=== PATIENT | female | born 1945 | race Asian ===

== ENCOUNTER 2019-10-02 23:26 | Inpatient (IN) | payer MEDICARE, MEDICAID ==
[~2019-10-02] VITALS: Ht 154.9 cm; Wt 59.0 kg
[~2019-10-02 23:26] MED LIST: ALAVERT10 M1 ORAL; ATORVASTATIN CA20 MG ORAL; ECOTRIN81 MG ORAL; IBANDRONATE SO150 MG PO; JANUVIA50 MG ORAL; LORATADINE10 M2 PO; NORVASC2.5 MG ORAL; NORVASC5 MG ORAL; RANITIDINE HCL150 MG ORAL; UNOBMED
[2019-10-02] MEDS ORDERED: DEXILANT60 MG ORAL (23:39)
[2019-10-02] MEDS ORDERED: LOSARTAN POTAS100 MG ORAL (23:39)
[2019-10-02] MEDS ORDERED: VASCEPA1 GM PO (23:39)
[2019-10-02] MEDS ORDERED: METOPROLOL SUCC25 MG ORAL (23:39)
[2019-10-02] MEDS ORDERED: ANTACID300 M1 PO (23:39)
--- NOTE | 2019-10-02 23:41 | NUR ---
ED Nurse Note: pt. walked in to er with daughter from home. per daughter, pt. has been having SOB, sorethroat, fever and cough x 3 days now. pt ao4 nad. vss.
[2019-10-02 23:42] VITALS: BP 138/75
--- NOTE | 2019-10-02 23:55 | Emergency Room Report ---
History of Present Illness General Chief Complaint: Flu Like Symptoms Source: Patient, Family Member Present Illness HPI Patient presents with complaints of cough shortness of breath sore throat ongoing for the past 3 to 4 days Daughter reports that the patient has been Having more difficulty sleeping also has increased headache with cough denies any vomiting or diarrhea denies any abdominal pain patient however feels generally fatigued Denies any posterior neck pain denies any photophobia Allergies: Coded Allergies: No Known Allergies (Unverified , 04/18/13) Patient History Past Medical History: see triage record Reviewed Nursing Documentation: PMH: Agreed; PSxH: Agreed Nursing Documentation-PMH Hx Cardiac Problems: Yes - high cholesterol Hx Hypertension: Yes Hx Diabetes: Yes Hx Cancer: No Hx Gastrointestinal Problems: No Hx Neurological Problems: Yes Hx Cerebrovascular Accident: No Hx Transient Ischemic Attacks: No Hx Dementia: No Hx Alzheimer's Disease: No Hx Parkinson's Disease: No Hx Meningitis: No Hx Encephalitis: No Hx Seizures: No Hx Epilepsy: No Hx Multiple Sclerosis: No Hx Cerebral Palsy: No Hx Amyotrophic Lat Sclerosis: No Hx [place] Syndrome: No Hx Paralysis: No Hx Peripheral Neuropathy: No Hx Spinal Cord Injury: No Hx Head Trauma: No Hx Traumatic Brain Injury: No Hx Memory Loss: No Hx Concentration Difficulty: No Hx Speech Problem: No Hx Tremors: No Hx Vertigo: No Hx Dizziness: Yes Hx Syncope: No Hx Headaches: Yes Hx Aphasia: No Hx Dysphasia: No Hx Numbness: No Hx Weakness: No Hx Fatigue: No Hx Neurologic Surgery: No Review of Systems All Other Systems: negative except mentioned in HPI Physical Exam Vital Signs Date Time Temp Pulse Resp B/P (MAP) Pulse Ox O2 Delivery O2 Flow Rate FiO2 10/02/19 23:32 97.5 92 23 138/75 (96) 95 Room Air Sp02 EP Interpretation: reviewed, normal General Appearance: mild distress - Appears mildly tachypneic Head: normocephalic, atraumatic Eyes: bilateral eye PERRL, bilateral eye EOMI ENT: hearing grossly normal, normal pharynx, TMs + canals normal, uvula midline Neck: full range of motion, supple, no meningismus, no bony tend Respiratory: no respiratory distress, no retraction, no accessory muscle use, crackles - Fine crackles in both lower lobes Cardiovascular #1: normal peripheral pulses, regular rate, rhythm, no edema, no gallop, no JVD, no murmur Gastrointestinal: normal bowel sounds, non tender, soft, no mass, no organomegaly, non-distended, no guarding, no hernia, no pulsatile mass, no rebound Genitourinary: no CVA tenderness Musculoskeletal: normal inspection Neurologic: motor strength/tone normal, dba developer III-XII nml as tested, oriented x3 , sensory intact, responsive Psychiatric: mood/affect normal Skin: no rash Lymphatic: normal inspection, no adenopathy Medical Decision Making Diagnostic Impression: Primary Impression: Hyperglycemia Additional Impressions: Influenza-like symptoms Acidosis ER Course Patient is a fairly complex patient with multiple differential to consideration including but not limited to cardiac cardiopulmonary and vascular emergencies Patient's x-ray does not show any obvious acute process Blood work reveals elevated glucose count patient does show some signs of acidosis however No obvious DKA patient further hydrated Given the multiple complaints and the comorbidities is admitted for further care Labs Test 10/03/19 00:00 10/03/19 01:30 White Blood Count 12.2 K/UL (4.8-10.8) Red Blood Count 4.08 M/UL (4.20-5.40) Hemoglobin 13.2 G/DL (12.0-16.0) Hematocrit 37.7 % (37.0-47.0) Mean Corpuscular Volume 92 FL (80-99) Mean Corpuscular Hemoglobin 32.4 PG (27.0-31.0) Mean Corpuscular Hemoglobin Concent 35.0 G/DL (32.0-36.0) Red Cell Distribution Width 10.9 % (11.6-14.8) Platelet Count 220 K/UL (150-450) Mean Platelet Volume 5.8 FL (6.5-10.1) Neutrophils (%) (Auto) 70.3 % (45.0-75.0) Lymphocytes (%) (Auto) 18.9 % (20.0-45.0) Monocytes (%) (Auto) 7.3 % (1.0-10.0) Eosinophils (%) (Auto) 2.5 % (0.0-3.0) Basophils (%) (Auto) 1.0 % (0.0-2.0) Sodium Level 135 MMOL/L (136-145) Potassium Level 3.5 MMOL/L (3.5-5.1) Chloride Level 100 MMOL/L (98-107) Carbon Dioxide Level 26 MMOL/L (21-32) Anion Gap 9 mmol/L (5-15) Blood Urea Nitrogen 18 mg/dL (7-18) Creatinine 1.0 MG/DL (0.55-1.30) Estimat Glomerular Filtration Rate mL/min (>60) Glucose Level 340 MG/DL (74-106) Lactic Acid Level 2.30 mmol/L (0.4-2.0) 1.20 mmol/L (0.66-2.22) Calcium Level 9.0 MG/DL (8.5-10.1) Total Bilirubin 0.5 MG/DL (0.2-1.0) Aspartate Amino Transf (AST/SGOT) 18 U/L (15-37) Alanine Aminotransferase (ALT/SGPT) 28 U/L (12-78) Alkaline Phosphatase 80 U/L (46-116) Total Creatine Kinase 87 U/L (26-308) Creatine Kinase MB 0.7 NG/ML (0.0-3.6) Creatine Kinase MB Relative Index 0.8 Troponin I 0.000 ng/mL (0.000-0.056) Pro-B-Type Natriuretic Peptide 33 pg/mL (0-125) Total Protein 7.2 G/DL (6.4-8.2) Albumin 3.8 G/DL (3.4-5.0) Globulin 3.4 g/dL Albumin/Globulin Ratio 1.1 (1.0-2.7) Lipase 279 U/L (73-393) Rhythm Strip Diag. Results EP Interpretation: yes Rate: 82 Rhythm: NSR, no PVC's, no ectopy Chest X-Ray Diagnostic Results Chest X-Ray Diagnostic Results : Chest X-Ray Ordered: Yes # of Views/Limited/Complete: 1 View Indication: Chest Pain EP Interpretation: Yes Interpretation: no consolidation, no effusion, no pneumothorax Impression: No acute disease Electronically Signed by: Danita Hernandez DO Last Vital Signs Date Time Temp Pulse Resp B/P (MAP) Pulse Ox O2 Delivery O2 Flow Rate FiO2 10/02/19 23:42 97.5 92 23 138/75 95 Room Air Status: improved Disposition: ADMITTED INPATIENT Condition: Serious Danita Hernandez DO Oct 02, 2019 23:55
[2019-10-03] VITALS (7 sets, daily range): BP systolic 104–128; BP diastolic 50–72
--- NOTE | 2019-10-03 | NUR ---
ED Nurse Note: IV ACCESS ESTABLISHED. BLOOD AND CULTURES COLLECTED; SENT DOWN TO LAB. UNABLE TO COLLECT URINE AT THIS TIME; PER PT, WILL PROVIDE URINE WHEN ABLE.
[2019-10-03 00:18] LABS: EOSINOPHILS % (AUTO) 2.5 % (0.0-3.0); HEMATOCRIT 37.7 % (37.0-47.0); HEMOGLOBIN 13.2 G/DL (12.0-16.0); LYMPHOCYTES % (AUTO) 18.9 % (20.0-45.0); MEAN CORPUSCULAR VOLUME 92 FL (80-99); MONOCYTES % (AUTO) 7.3 % (1.0-10.0); NEUTROPHILS % (AUTO) 70.3 % (45.0-75.0); PLATELET COUNT 220 K/UL (150-450); RED BLOOD COUNT 4.08 M/UL (4.20-5.40); RED CELL DISTRIBUTION WIDTH 10.9 % (11.6-14.8); WHITE BLOOD COUNT 12.2 K/UL (4.8-10.8)
[2019-10-03 00:30] LABS: ANION GAP 9 mmol/L (5-15); BLOOD UREA NITROGEN 18 mg/dL (7-18); CARBON DIOXIDE 26 MMOL/L (21-32); CHLORIDE 100 MMOL/L (98-107); POTASSIUM 3.5 MMOL/L (3.5-5.1); SODIUM 135 MMOL/L (136-145)
[2019-10-03 00:44] LABS: ALANINE AMINOTRANSFERASE 28 U/L (12-78); ALBUMIN 3.8 G/DL (3.4-5.0); ALBUMIN/GLOBULIN RATIO 1.1 (1.0-2.7); ALKALINE PHOSPHATASE 80 U/L (46-116); ASPARTATE AMINO TRANSFERASE 18 U/L (15-37); BILIRUBIN,TOTAL 0.5 MG/DL (0.2-1.0); CKMB 0.7 NG/ML (0.0-3.6); CREATINE KINASE 87 U/L (26-308)
[2019-10-03] MEDS ORDERED: Promethazine/Codeine 5ml UD ORAL ONE (01:15)
--- NOTE | 2019-10-03 01:43 | NUR ---
ED Nurse Note: FLU SWAB AND LACTIC REFLEX COLLECTED; SENT DOWN TO LAB.
--- NOTE | 2019-10-03 02:06 | NUR ---
TRANSFER TO FLOOR: Patient transferred to MED SURG 412-2 as ordered, per ALFONSO BONILLA. Report given to AGNIESZKA SHORE. PATIENT IN STABLE CONDITION. PATIENT TRANSFERED TO UNIT WITH ALL BELONGINGS AND ADMISSION PACKET. PT ACCOMPANIED BY [facility] AND FAMILY MEMBER.
--- NOTE | 2019-10-03 02:28 | NUR ---
NURSE NOTES: Received patient from ED via gurney, patient is awake, alert, oriented x4, Czech speaking only, daughter at bedside. IV site is clean dry and intact, call light is within reach, bed is lowered locked, alarm is on, belongings list is verified, signed for, oriented to the room. Will continue to monitor for comfort and safety, MD called for admit orders.
[2019-10-03 04:03] LABS: APPEARANCE,URINE CLEAR; BILIRUBIN, URINE NEGATIVE (NEGATIVE); COLOR,URINE PALE YELLOW; GLUCOSE, URINE (UA) NEGATIVE (NEGATIVE); KETONES,URINE NEGATIVE (NEGATIVE); LEUKOCYTE ESTERASE ,URINE 1+ (NEGATIVE); NITRITE,URINE NEGATIVE (NEGATIVE); PH,URINE 7 (4.5-8.0); PROTEIN,URINE NEGATIVE (NEGATIVE); UROBILINOGEN,URINE NORMAL MG/DL (0.0-1.0)
--- NOTE | 2019-10-03 05:20 | NUR ---
RN called and left a voice message for MD to call back with admit orders, CN was made aware.
[2019-10-03] MEDS ORDERED: Promethazine/Codeine 5ml UD ORAL PRN (07:15)
--- NOTE | 2019-10-03 07:33 | NUR ---
HAND-OFF: Report given to Laura SHORE.
--- NOTE | 2019-10-03 07:35 | NUR ---
NURSE NOTES: received report from MONE Cuellar. patient in bed. sleeping. no respiratory distress noted. no facial grimacing noted.IV on LH 18. intact. bed in the lowest position and locked. alarm on . call light within reach. will continue to provide plan of care.
[2019-10-03] MEDS: Metoprolol Succinate XL 25mg tab ORAL SCH (08:52)
[2019-10-03] MEDS: sitaGLIPtin 50mg tab ORAL SCH (08:52)
[2019-10-03] MEDS: Losartan 50mg tab ORAL SCH (08:52)
[2019-10-03] MEDS: NovoLOG Insulin Flexpen SUBQ SCH ×3 (11:30→20:55)
--- NOTE | 2019-10-03 11:58 | NUR ---
MD NOTIFICATION MESSAGE LEFT FOR MD REGARDING INPATIENT CRITERIA
[2019-10-03] MEDS: Heparin 5000 units/ml inj SUBQ SCH ×2 (13:28→22:19)
--- NOTE | 2019-10-03 13:30 | Diagnostic Imaging Report ---
Indication: Shortness of breath and cough Technique: One view of the chest Comparison: 02/16/2015 Findings: The patient is rotated to the left. The lungs and pleural spaces are clear. The heart size is upper limits of normal. The aorta is calcified. Findings are unchanged Impression: No acute process
--- NOTE | 2019-10-03 13:43 | Cardiology Report ---
APPROVED REPORT EKG Measurement Heart [id number] Sinus rhythm with 1st degree AV block Anterior infarct, age undetermined Abnormal ECG
--- NOTE | 2019-10-03 14:16 | Consultation ---
History of Present Illness General Chief Complaint: Flu Like Symptoms Present Illness Allergies: Coded Allergies: No Known Allergies (Unverified , 04/18/13) Medication History Scheduled Amlodipine Besylate (Norvasc), 5 MG ORAL DAILY, (Reported) Atorvastatin Calcium* (Atorvastatin Calcium*), 20 MG ORAL BEDTIME, (Reported) Dexlansoprazole (Dexilant), 60 MG ORAL DAILY, (Reported) Ipratropium/Albuterol Sulfate (DuoNeb 0.5-3(2.5)mg/3ml), 3 ML HHN EVERY 8 HOURS Losartan Potassium (Losartan Potassium), 50 MG ORAL DAILY, (Reported) Methylprednisolone (Methylprednisolone*), 4 MG ORAL DIRECTED Metoprolol Succinate* (Metoprolol Succinate*), 25 MG ORAL DAILY, (Reported) Nateglinide* (Starlix*), 60 MG ORAL TIAC Sitagliptin (Januvia), 50 MG ORAL DAILY, (Reported) Miscellaneous Medications Calcium Carbonate (Antacid), 500 MG PO, (Reported) Icosapent Ethyl (Vascepa), 1 GM PO, (Reported) Discontinued Medications Aspirin (Ecotrin), 81 MG ORAL DAILY Discontinued Reason: Therapy completed Ibandronate Sodium (Ibandronate Sodium), 150 MG PO once a month, (Reported) Discontinued Reason: Therapy completed Loratadine (Alavert), 10 MG ORAL DAILY, (Reported) Discontinued Reason: Therapy completed Loratadine (Loratadine), 10 MG PO, (Reported) Discontinued Reason: Therapy completed Ranitidine Hcl* (Zantac*), 150 MG ORAL BEDTIME Discontinued Reason: Therapy completed Patient History Healthcare decision maker Resuscitation status Full Code Advanced Directive on File No Physical Exam Last 24 Hour Vital Signs Date Time Temp Pulse Resp B/P (MAP) Pulse Ox O2 Delivery O2 Flow Rate FiO2 10/03/19 12:00 99.0 82 19 124/72 (89) 97 10/03/19 09:00 Room Air 10/03/19 08:52 87 120/71 10/03/19 08:52 120/71 10/03/19 08:52 87 120/71 10/03/19 08:00 99.2 87 18 120/71 (87) 99 10/03/19 04:00 98.1 73 20 110/68 (82) 94 10/03/19 02:53 97.7 74 20 125/62 (83) 97 10/03/19 02:51 Room Air 10/03/19 02:13 97.5 85 22 128/71 96 Room Air 10/03/19 01:43 97.5 85 22 128/71 96 Room Air 10/02/19 23:42 97.5 92 23 138/75 95 Room Air 10/02/19 23:42 92 23 Room Air 10/02/19 23:32 97.5 92 23 138/75 (96) 95 Room Air Laboratory Tests Test 10/03/19 00:00 10/03/19 01:30 10/03/19 03:50 White Blood Count 12.2 K/UL (4.8-10.8) H Red Blood Count 4.08 M/UL (4.20-5.40) L Hemoglobin 13.2 G/DL (12.0-16.0) Hematocrit 37.7 % (37.0-47.0) Mean Corpuscular Volume 92 FL (80-99) Mean Corpuscular Hemoglobin 32.4 PG (27.0-31.0) H Mean Corpuscular Hemoglobin Concent 35.0 G/DL (32.0-36.0) Red Cell Distribution Width 10.9 % (11.6-14.8) L Platelet Count 220 K/UL (150-450) Mean Platelet Volume 5.8 FL (6.5-10.1) L Neutrophils (%) (Auto) 70.3 % (45.0-75.0) Lymphocytes (%) (Auto) 18.9 % (20.0-45.0) L Monocytes (%) (Auto) 7.3 % (1.0-10.0) Eosinophils (%) (Auto) 2.5 % (0.0-3.0) Basophils (%) (Auto) 1.0 % (0.0-2.0) Sodium Level 135 MMOL/L (136-145) L Potassium Level 3.5 MMOL/L (3.5-5.1) Chloride Level 100 MMOL/L (98-107) Carbon Dioxide Level 26 MMOL/L (21-32) Anion Gap 9 mmol/L (5-15) Blood Urea Nitrogen 18 mg/dL (7-18) Creatinine 1.0 MG/DL (0.55-1.30) Estimat Glomerular Filtration Rate mL/min (>60) Glucose Level 340 MG/DL (74-106) H Lactic Acid Level 2.30 mmol/L (0.4-2.0) H 1.20 mmol/L (0.66-2.22) Calcium Level 9.0 MG/DL (8.5-10.1) Total Bilirubin 0.5 MG/DL (0.2-1.0) Aspartate Amino Transf (AST/SGOT) 18 U/L (15-37) Alanine Aminotransferase (ALT/SGPT) 28 U/L (12-78) Alkaline Phosphatase 80 U/L (46-116) Total Creatine Kinase 87 U/L (26-308) Creatine Kinase MB 0.7 NG/ML (0.0-3.6) Creatine Kinase MB Relative Index 0.8 Troponin I 0.000 ng/mL (0.000-0.056) Pro-B-Type Natriuretic Peptide 33 pg/mL (0-125) Total Protein 7.2 G/DL (6.4-8.2) Albumin 3.8 G/DL (3.4-5.0) Globulin 3.4 g/dL Albumin/Globulin Ratio 1.1 (1.0-2.7) Lipase 279 U/L (73-393) Urine Color Pale yellow Urine Appearance Clear Urine pH 7 (4.5-8.0) Urine Specific [place] 1.005 (1.005-1.035) Urine Protein Negative (NEGATIVE) Urine Glucose (UA) Negative (NEGATIVE) Urine Ketones Negative (NEGATIVE) Urine Blood Negative (NEGATIVE) Urine Nitrite Negative (NEGATIVE) Urine Bilirubin Negative (NEGATIVE) Urine Urobilinogen Normal MG/DL (0.0-1.0) Urine Leukocyte Esterase 1+ (NEGATIVE) H Urine RBC 0-2 /HPF (0 - 2) Urine WBC 0-2 /HPF (0 - 2) Urine Squamous Epithelial Cells Occasional /LPF Urine Bacteria Occasional /HPF (NONE) Microbiology Date/Time Source Procedure Growth Status 10/03/19 00:00 Nasal Nares - Final Complete 10/03/19 00:00 Nasal Nares - Final Complete Height (Feet): 5 Height (Inches): 1.00 Weight (Pounds): 130 Medications Current Medications Medications (Trade) Dose Ordered Sig/Angélica Route PRN Reason Start Time Stop Time Status Last Admin Dose Admin Acetaminophen (Tylenol) 650 mg Q4H PRN ORAL Mild Pain/Temp > 100.5 10/03/19 07:15 11/02/19 07:14 10/03/19 13:26 Amlodipine Besylate (Norvasc) 5 mg DAILY ORAL 10/03/19 09:00 11/02/19 08:59 10/03/19 08:52 Atorvastatin Calcium (Lipitor) 20 mg BEDTIME ORAL 10/03/19 21:00 11/02/19 20:59 Dextrose (Dextrose 50%) 25 ml Q30M PRN IV Hypoglycemia 10/03/19 07:15 11/02/19 07:14 Dextrose (Dextrose 50%) 50 ml Q30M PRN IV Hypoglycemia 10/03/19 07:15 11/02/19 07:14 Heparin Sodium (Porcine) (Heparin 5000 units/ml) 5,000 units EVERY 8 HOURS SUBQ 10/03/19 14:00 11/02/19 13:59 10/03/19 13:28 Insulin Aspart (NovoLOG) BEFORE MEALS AND HS SUBQ 10/03/19 11:30 11/02/19 11:29 Losartan Potassium (Cozaar) 50 mg DAILY ORAL 10/03/19 09:00 11/02/19 08:59 10/03/19 08:52 Metoprolol Succinate (Toprol XL) 25 mg DAILY ORAL 10/03/19 09:00 11/02/19 08:59 10/03/19 08:52 Ondansetron HCl (Zofran) 4 mg Q4H PRN IVP Nausea & Vomiting 10/03/19 07:15 11/02/19 07:14 Promethazine HCl/ Codeine (Phenergan with Codeine) 5 ml Q6H PRN ORAL For Cough 10/03/19 07:15 11/02/19 07:14 10/03/19 08:57 Sitagliptin Phosphate (Januvia) 50 mg DAILY ORAL 10/03/19 09:00 11/02/19 08:59 10/03/19 08:52 Sodium Chloride 1,000 ml @ 75 mls/hr [id number] IV 10/03/19 07:15 11/02/19 07:14 10/03/19 08:52 Assessment/Plan Problem List: (1) Acute exacerbation of chronic obstructive pulmonary disease (COPD) ICD Codes: J44.1 - Chronic obstructive pulmonary disease with (acute) exacerbation SNOMED: 081750839 (2) Acute purulent bronchitis ICD Codes: J20.8 - Acute bronchitis due to other specified organisms SNOMED: 088275731 (3) COPD (chronic obstructive pulmonary disease) ICD Codes: J44.9 - Chronic obstructive pulmonary disease, unspecified SNOMED: 23413389 (4) Empyema ICD Codes: J86.9 - Pyothorax without fistula SNOMED: 787847794 (5) Diabetes mellitus ICD Codes: E11.9 - Type 2 diabetes mellitus without complications SNOMED: 21872176 Assessment/Plan: respiratory treatment check sputum short course of abx sliding scale continue Januvia antitussives Britney Jensen MD Oct 03, 2019 14:16
[2019-10-03] MEDS: Promethazine/Codeine 5ml UD ORAL PRN ×2 (15:11→20:42)
[2019-10-03] MEDS: Solu-MEDROL 125mg Inj IV SCH ×2 (15:11→18:33)
--- NOTE | 2019-10-03 16:02 | NUR ---
CASE MANAGEMENT: INITIAL REVIEW 73YR OLD FEMALE FROM HOME CC: FLU LIKE SYMPTOMS SI: ACIDOSIS/ HYPERGLYCEMIA 97.6 92 23 138/75 95% ON RA NA+ 135 BG 340 WBC 12.2 LACTIC ACID 2.30 IS: IVF NS BOLUS X1 PROMETHAZINE PO X1 \: 4E MED SURG CASE MANAGEMENT: INITIAL REVIEW 10/03/19 SI: ACUTE COPD EXACERBATION . ACUTE PURULENT BRONCHITIS . DM 97.6 92 23 138/75 95% ON RA NA+ 135 BG 340 WBC 12.2 LACTIC ACID 2.30 IS: IV SOLU-MEDROL Q6HR HEPARIN SQ Q8HR NORVASC PO QD COZAAR PO QD TOPROL XL PO QD JUNUVIA PO QD \: 4E MED SURG PLAN: BREATHING TX PER RT ABX
[2019-10-03] MEDS: cefTRIAXone 1 GM in D5W 55 ML IVPB SCH (16:44)
--- NOTE | 2019-10-03 18:41 | History & Physical ---
History and Physical History & Physicial Dictated for Int Med-Dr Padgett no. [id number] Caleb Muller MD Oct 03, 2019 18:41
--- NOTE | 2019-10-03 19:20 | NUR ---
NURSE NOTES: Received report from MONE Sanchez. Patient a/a/o x 4, breathing unlabored on room air without distress. Nonproductive cough noted during the rounding. No complaint of pain at this time. IV noted on left hand intact, dry, and patent, currently saline locked. Bed placed at the lowest with alarm, brake, and siderails up for safety. Call light placed within reach. Will continue to monitor and provide care as ordered.
--- NOTE | 2019-10-03 19:22 | NUR ---
HAND-OFF: Report given to MONE Pack .
[2019-10-03] MEDS: Theophylline ER 100mg ORAL SCH (20:42)
[2019-10-03] MEDS: Atorvastatin 20mg tab ORAL SCH (20:42)
--- NOTE | 2019-10-03 21:31 | History and Physical Report ---
DATE OF ADMISSION: 10/03/2019 CHIEF COMPLAINT: The patient is a 73-year-old Frisian-speaking female who presents with chief complaint of cough and shortness of breath. HISTORY OF PRESENT ILLNESS: It began three days prior to admission. The patient began to have sore throat. The patient then began to have cough, which is nonproductive. The patient then began to have shortness of breath. The patient presented to [place] emergency room. The patient was admitted with cough and shortness of breath to rule out pneumonia. REVIEW OF SYSTEMS: CONSTITUTIONAL: The patient denies weight loss or weight gain. The patient denies fevers or chills. HEENT: The patient denies ear or throat pain. The patient denies headache. CARDIOVASCULAR: The patient denies palpitations or chest pain. CHEST: The patient complains of shortness of breath and cough as above. The patient denies wheezes. ABDOMEN: The patient denies nausea, vomiting, diarrhea, or constipation. GENITOURINARY: The patient denies dysuria or increased frequency of urination. NEUROMUSCULAR: The patient complains of generalized weakness. The patient denies weakness or seizures. PAST MEDICAL HISTORY: Significant for: 1. Type 2 diabetes. 2. Hypertension. 3. Hypercholesterolemia. PAST SURGICAL HISTORY: The patient denies. CURRENT MEDICATIONS: 1. Amlodipine 5 mg p.o. daily. 2. Atorvastatin 20 mg p.o. at bedtime. 3. Dexilant 60 mg p.o. daily. 4. Vascepa 1 g p.o. 5. Losartan 50 mg p.o. daily. 6. Metoprolol 25 mg p.o. daily. 7. Januvia 50 mg p.o. daily. ALLERGIES: No known drug allergies. SOCIAL HISTORY: The patient is single. The patient denies tobacco or alcohol use. PHYSICAL EXAMINATION: VITAL SIGNS: Temperature 97.5, respirations 23, pulse 93, blood pressure 138/75, pulse oximetry 95% on room air. GENERAL: The patient is a well-developed and well-nourished female, in no apparent distress. HEENT: Eyes, pupils are equal and responsive to light and accommodation. Extraocular movements are intact. NECK: Supple without lymphadenopathy. CHEST: Lungs are clear to auscultation bilaterally without wheezes or rales. CARDIOVASCULAR: Regular rate. S1, S2 normal without murmurs, rubs, or gallops. ABDOMEN: Soft, nontender, nondistended. Positive bowel sounds. No evidence of hepatosplenomegaly. Currently, no rebound or guarding noted. EXTREMITIES: Negative for clubbing, cyanosis, or edema. RECTAL/GENITAL: Refused. NEUROLOGIC: Cranial nerves II through XII grossly intact without focal deficits. Motor strength is 5/5 bilaterally. Deep tendon reflexes are 2+ plantar. LABORATORY STUDIES: WBC , hemoglobin 13.2, hematocrit 37.7, platelets 220,000. Sodium 135, potassium 3.5, chloride 100, CO2 26, BUN 18, creatinine 1.0, glucose 340. Lactic acid elevated at 2.30. Troponin 0.0. Chest x-ray was reported as no acute disease. ASSESSMENT: This is a 73-year-old female. 1. Hyperglycemia. 2. Ketoacidosis. 3. Shortness of breath. 4. Upper respiratory tract infection. 5. Diabetes type 2. 6. Hypertension. 7. Hypercholesterolemia. TREATMENT: 1. Hyperglycemia/diabetes type 2. A NovoLog sliding scale has been instituted. Accu-Cheks will be performed before meals and at bedtime. An Endocrinology consultation has been obtained with Dr. Pitts. 2. Shortness of breath. A Pulmonary consultation has been obtained with Dr. Britney Jensen. The patient may have upper respiratory tract infection versus bronchitis. We will follow recommendations of Pulmonary. The patient has been started empirically on intravenous Solu-Medrol and ceftriaxone. The patient is also on the . 3. Diabetes type 2. Continue Januvia and NovoLog sliding scale. 4. Hypertension. Continue amlodipine and metoprolol as above. Continue losartan as above. 5. Hypercholesterolemia. Continue atorvastatin as above. Caleb Muller M.D. DR: ANJUM JOB#: [id number] CC:
[2019-10-04] VITALS: BP 108/62
[2019-10-04] MEDS: Solu-MEDROL 125mg Inj IV SCH ×4 (00:33→17:06)
[2019-10-04] MEDS: Promethazine/Codeine 5ml UD ORAL PRN ×4 (02:10→20:09)
--- NOTE | 2019-10-04 02:30 | NUR ---
NURSE NOTES: collected sputum sample and sent it down to the lab.
[2019-10-04 04:00] VITALS: BP 103/57
[2019-10-04] MEDS: Heparin 5000 units/ml inj SUBQ SCH ×3 (05:42→22:16)
[2019-10-04] MEDS: NovoLOG Insulin Flexpen SUBQ SCH ×4 (06:18→20:48)
--- NOTE | 2019-10-04 07:30 | NUR ---
HAND-OFF: Report given to MONE Jain.
--- NOTE | 2019-10-04 07:31 | NUR ---
NURSE NOTES: Received pt in bed, AAO x 4. Latvian speaking. RA. No c/o of distress/pain. IV on L hand 18g intact and patent, with saline lock. Side rails x 2. Bed in the lowest and locked. Call light within reach. Will continue to monitor
[2019-10-04 07:33] LABS: BASOPHILS % (AUTO) 0.2 % (0.0-2.0); HEMATOCRIT 38.4 % (37.0-47.0); HEMOGLOBIN 13.8 G/DL (12.0-16.0); LYMPHOCYTES % (AUTO) 14.5 % (20.0-45.0); MEAN CORPUSCULAR VOLUME 92 FL (80-99); MONOCYTES % (AUTO) 0.9 % (1.0-10.0); NEUTROPHILS % (AUTO) 84.4 % (45.0-75.0); PLATELET COUNT 252 K/UL (150-450); RED BLOOD COUNT 4.18 M/UL (4.20-5.40); RED CELL DISTRIBUTION WIDTH 10.5 % (11.6-14.8)
[2019-10-04 07:55] LABS: ANION GAP 11 mmol/L (5-15); BLOOD UREA NITROGEN 19 mg/dL (7-18); CALCIUM 8.8 MG/DL (8.5-10.1); CARBON DIOXIDE 26 MMOL/L (21-32); CHLORIDE 100 MMOL/L (98-107); CREATININE 0.9 MG/DL (0.55-1.30); PHOSPHORUS 3.6 MG/DL (2.5-4.9); POTASSIUM 3.8 MMOL/L (3.5-5.1); SODIUM 137 MMOL/L (136-145)
[2019-10-04 08:00] VITALS: BP 112/59
[2019-10-04] MEDS: Metoprolol Succinate XL 25mg tab ORAL SCH (08:57)
[2019-10-04] MEDS: sitaGLIPtin 50mg tab ORAL SCH (08:59)
[2019-10-04] MEDS: Theophylline ER 100mg ORAL SCH ×2 (08:59→20:42)
[2019-10-04] MEDS: Losartan 50mg tab ORAL SCH (09:00)
[2019-10-04 12:00] VITALS: BP 118/63
--- NOTE | 2019-10-04 15:04 | Internal Med Progress Note ---
Subjective Date of Service: Oct 04, 2019 Physician Name Caleb Muller Attending Physician Stan Padgett MD Current Medications Medications (Trade) Dose Ordered Sig/Angélica Route PRN Reason Start Time Stop Time Status Last Admin Dose Admin Acetaminophen (Tylenol) 650 mg Q4H PRN ORAL Mild Pain/Temp > 100.5 10/03/19 07:15 11/02/19 07:14 10/03/19 13:26 Amlodipine Besylate (Norvasc) 5 mg DAILY ORAL 10/03/19 09:00 11/02/19 08:59 10/03/19 08:52 Atorvastatin Calcium (Lipitor) 20 mg BEDTIME ORAL 10/03/19 21:00 11/02/19 20:59 10/03/19 20:42 Ceftriaxone Sodium 1 gm/ Dextrose 55 ml @ 110 mls/hr Q24H IVPB 10/03/19 17:00 10/10/19 16:59 10/03/19 16:44 Dextrose (Dextrose 50%) 25 ml Q30M PRN IV Hypoglycemia 10/03/19 07:15 11/02/19 07:14 Dextrose (Dextrose 50%) 50 ml Q30M PRN IV Hypoglycemia 10/03/19 07:15 11/02/19 07:14 Heparin Sodium (Porcine) (Heparin 5000 units/ml) 5,000 units EVERY 8 HOURS SUBQ 10/03/19 14:00 11/02/19 13:59 10/04/19 05:42 Insulin Aspart (NovoLOG) BEFORE MEALS AND HS SUBQ 10/03/19 11:30 11/02/19 11:29 10/04/19 11:35 Losartan Potassium (Cozaar) 50 mg DAILY ORAL 10/03/19 09:00 11/02/19 08:59 10/04/19 09:00 Methylprednisolone Sodium Succinate (Solu-MEDROL) 60 mg EVERY 6 HOURS IV 10/03/19 14:13 11/02/19 14:12 10/04/19 11:34 Metoprolol Succinate (Toprol XL) 25 mg DAILY ORAL 10/03/19 09:00 11/02/19 08:59 10/03/19 08:52 Ondansetron HCl (Zofran) 4 mg Q4H PRN IVP Nausea & Vomiting 10/03/19 07:15 11/02/19 07:14 Promethazine HCl/ Codeine (Phenergan with Codeine) 5 ml Q4H PRN ORAL For Cough 10/03/19 14:13 11/02/19 14:12 10/04/19 14:30 Sitagliptin Phosphate (Januvia) 50 mg DAILY ORAL 10/03/19 09:00 11/02/19 08:59 10/04/19 08:59 Theophylline (Zeeshan-Dur) 100 mg EVERY 12 HOURS ORAL 10/03/19 21:00 11/02/19 20:59 10/04/19 08:59 Allergies: Coded Allergies: No Known Allergies (Unverified , 04/18/13) ROS Limited/Unobtainable: No Constitutional: Reports: no symptoms HEENT: Reports: no symptoms Cardiovascular: Reports: no symptoms Respiratory: Reports: shortness of breath Gastrointestinal/Abdominal: Reports: no symptoms Genitourinary: Reports: no symptoms Neurologic/Psychiatric: Reports: no symptoms Subjective 73 YO F admitted with shortness of breath. Now uncontrolled diabetes with hyperglycemia. Cover For Int Med-DR Padgett Objective Last Vital Signs Date Time Temp Pulse Resp B/P (MAP) Pulse Ox O2 Delivery O2 Flow Rate FiO2 10/04/19 12:00 98.5 87 20 118/63 (81) 96 10/04/19 11:24 Room Air 21 Laboratory Tests Test 10/04/19 05:40 White Blood Count 13.0 K/UL (4.8-10.8) H Red Blood Count 4.18 M/UL (4.20-5.40) L Hemoglobin 13.8 G/DL (12.0-16.0) Hematocrit 38.4 % (37.0-47.0) Mean Corpuscular Volume 92 FL (80-99) Mean Corpuscular Hemoglobin 32.9 PG (27.0-31.0) H Mean Corpuscular Hemoglobin Concent 35.8 G/DL (32.0-36.0) Red Cell Distribution Width 10.5 % (11.6-14.8) L Platelet Count 252 K/UL (150-450) Mean Platelet Volume 5.7 FL (6.5-10.1) L Neutrophils (%) (Auto) 84.4 % (45.0-75.0) H Lymphocytes (%) (Auto) 14.5 % (20.0-45.0) L Monocytes (%) (Auto) 0.9 % (1.0-10.0) L Eosinophils (%) (Auto) 0.0 % (0.0-3.0) Basophils (%) (Auto) 0.2 % (0.0-2.0) Sodium Level 137 MMOL/L (136-145) Potassium Level 3.8 MMOL/L (3.5-5.1) Chloride Level 100 MMOL/L (98-107) Carbon Dioxide Level 26 MMOL/L (21-32) Anion Gap 11 mmol/L (5-15) Blood Urea Nitrogen 19 mg/dL (7-18) H Creatinine 0.9 MG/DL (0.55-1.30) Estimat Glomerular Filtration Rate mL/min (>60) Glucose Level 210 MG/DL (74-106) #H Calcium Level 8.8 MG/DL (8.5-10.1) Phosphorus Level 3.6 MG/DL (2.5-4.9) Magnesium Level 2.0 MG/DL (1.8-2.4) Microbiology Date/Time Source Procedure Growth Status 10/03/19 00:00 Blood Blood Culture - Preliminary NO GROWTH AFTER 24 HOURS Resulted 10/02/19 23:45 Blood Blood Culture - Preliminary NO GROWTH AFTER 24 HOURS Resulted 10/03/19 00:00 Nasal Nares - Final Complete 10/03/19 00:00 Nasal Nares - Final Complete Intake and Output 10/03/19 10/04/19 19:00 07:00 Intake Total 610 ml Balance 610 ml Intake Oral 500 ml IV Total 110 ml # Voids 3 Objective PHYSICAL EXAMINATION: GENERAL: The patient is a well-developed and well-nourished female, in no apparent distress. HEENT: Eyes, pupils are equal and responsive to light and accommodation. Extraocular movements are intact. NECK: Supple without lymphadenopathy. CHEST: Lungs are clear to auscultation bilaterally without wheezes or rales. CARDIOVASCULAR: Regular rate. S1, S2 normal without murmurs, rubs, or gallops. ABDOMEN: Soft, nontender, nondistended. Positive bowel sounds. No evidence of hepatosplenomegaly. Currently, no rebound or guarding noted. EXTREMITIES: Negative for clubbing, cyanosis, or edema. RECTAL/GENITAL: Refused. NEUROLOGIC: Cranial nerves II through XII grossly intact without focal deficits. Motor strength is 5/5 bilaterally. Deep tendon reflexes are 2+ plantar. Assessment/Plan Assessment/Plan ASSESSMENT: This is a 73-year-old female. 1. Hyperglycemia. 2. Ketoacidosis. 3. Shortness of breath. 4. Upper respiratory tract infection. 5. Diabetes type 2. 6. Hypertension. 7. Hypercholesterolemia. TREATMENT: 1. Hyperglycemia/diabetes type 2. A NovoLog sliding scale has been instituted. Accu-Cheks will be performed before meals and at bedtime. An Endocrinology consultation has been obtained with Dr. Pitts. 2. Shortness of breath. A Pulmonary consultation has been obtained with Dr. Britney Jensen. The patient may have upper respiratory tract infection versus bronchitis. We will follow recommendations of Pulmonary. The patient has been started empirically on intravenous Solu-Medrol and ceftriaxone. The patient is also on theodur 3. Diabetes type 2. Continue Januvia and NovoLog sliding scale. 4. Hypertension. Continue amlodipine and metoprolol as above. Continue losartan as above. 5. Hypercholesterolemia. Continue atorvastatin as above. Caleb Muller MD Oct 04, 2019 15:04
[2019-10-04 16:00] VITALS: BP 122/68
[2019-10-04] MEDS: cefTRIAXone 1 GM in D5W 55 ML IVPB SCH (17:07)
--- NOTE | 2019-10-04 18:56 | NUR ---
HAND-OFF: Report given to MONE Pack.
--- NOTE | 2019-10-04 19:00 | NUR ---
NURSE NOTES: Received report from MONE Jain. Patient a/a/o x4, breathing unlabored on room air. No complain of pain at this time. IV noted intact, dry, clean, and patent on left hand, saline locked. Bed placed at the lowest with alarm, brake, and siderails up for safety. Linen completely changed. Call light placed within reach. Family member acknowledged at the bedside. Will continue to monitor and provide care as ordered.
[2019-10-04 20:00] VITALS: BP 117/60
[2019-10-04] MEDS: Atorvastatin 20mg tab ORAL SCH (20:42)
--- NOTE | 2019-10-04 21:12 | Pulmonology Progress Note ---
Assessment/Plan Problems: (1) Acute exacerbation of chronic obstructive pulmonary disease (COPD) (2) Acute purulent bronchitis (3) COPD (chronic obstructive pulmonary disease) (4) Empyema (5) Diabetes mellitus Assessment/Plan respiratory treatment check sputum short course of abx sliding scale continue Januvia antitussives Subjective ROS Limited/Unobtainable: No Interval Events: still coughing Allergies: Coded Allergies: No Known Allergies (Unverified , 04/18/13) Objective Last 24 Hour Vital Signs Date Time Temp Pulse Resp B/P (MAP) Pulse Ox O2 Delivery O2 Flow Rate FiO2 10/04/19 20:26 82 18 99 Room Air 21 10/04/19 20:25 80 18 97 Room Air 21 10/04/19 16:00 98.7 83 19 122/68 (86) 97 10/04/19 15:50 72 16 96 Room Air 21 10/04/19 15:50 73 18 98 Room Air 21 10/04/19 12:00 98.5 87 20 118/63 (81) 96 10/04/19 11:24 76 18 98 Room Air 21 10/04/19 11:20 74 16 97 Room Air 21 10/04/19 09:00 Room Air 10/04/19 09:00 112/59 10/04/19 08:57 82 112/59 10/04/19 08:56 82 112/59 10/04/19 08:12 82 18 98 Room Air 21 10/04/19 08:05 80 16 97 Room Air 21 10/04/19 08:00 98.2 85 19 112/59 (76) 95 10/04/19 04:00 97.0 79 18 103/57 (72) 94 10/04/19 03:19 77 18 99 Room Air 21 10/04/19 03:19 70 16 97 Room Air 21 10/04/19 00:00 97.0 75 17 108/62 (77) 96 10/03/19 22:39 72 16 96 Room Air 21 10/03/19 22:39 78 18 99 Room Air 21 Intake and Output 10/03/19 10/04/19 18:59 06:59 Intake Total 610 ml Balance 610 ml Intake Oral 500 ml IV Total 110 ml # Voids 3 Objective General Appearance: WD/WN, no apparent distress Lines, tubes and drains: peripheral HEENT: normocephalic, atraumatic Neck: non-tender, normal alignment Respiratory/Chest: chest wall non-tender, lungs clear Breasts: no masses Cardiovascular/Chest: normal peripheral pulses Abdomen: non tender Extremities: normal range of motion Skin Exam: normal pigmentation Microbiology Date/Time Source Procedure Growth Status 10/03/19 00:00 Blood Blood Culture - Preliminary NO GROWTH AFTER 24 HOURS Resulted 10/02/19 23:45 Blood Blood Culture - Preliminary NO GROWTH AFTER 24 HOURS Resulted 10/03/19 00:00 Nasal Nares - Final Complete 10/03/19 00:00 Nasal Nares - Final Complete Laboratory Tests 10/04/19 05:40: White Blood Count 13.0H, Red Blood Count 4.18L, Hemoglobin 13.8, Hematocrit 38.4 , Mean Corpuscular Volume 92, Mean Corpuscular Hemoglobin 32.9H, Mean Corpuscular Hemoglobin Concent 35.8, Red Cell Distribution Width 10.5L, Platelet Count 252, Mean Platelet Volume 5.7L, Neutrophils (%) (Auto) 84.4H, Lymphocytes (%) (Auto) 14.5L, Monocytes (%) (Auto) 0.9L, Eosinophils (%) (Auto) 0.0, Basophils (%) (Auto) 0.2, Sodium Level 137, Potassium Level 3.8, Chloride Level 100, Carbon Dioxide Level 26, Anion Gap 11, Blood Urea Nitrogen 19H, Creatinine 0.9, Estimat Glomerular Filtration Rate , Glucose Level 210#H, Calcium Level 8.8, Phosphorus Level 3.6, Magnesium Level 2.0 Current Medications Medications (Trade) Dose Ordered Sig/Angélica Route PRN Reason Start Time Stop Time Status Last Admin Dose Admin Acetaminophen (Tylenol) 650 mg Q4H PRN ORAL Mild Pain/Temp > 100.5 10/03/19 07:15 11/02/19 07:14 10/03/19 13:26 Amlodipine Besylate (Norvasc) 5 mg DAILY ORAL 10/03/19 09:00 11/02/19 08:59 10/03/19 08:52 Atorvastatin Calcium (Lipitor) 20 mg BEDTIME ORAL 10/03/19 21:00 11/02/19 20:59 10/04/19 20:42 Ceftriaxone Sodium 1 gm/ Dextrose 55 ml @ 110 mls/hr Q24H IVPB 10/03/19 17:00 10/10/19 16:59 10/04/19 17:07 Dextrose (Dextrose 50%) 25 ml Q30M PRN IV Hypoglycemia 10/03/19 07:15 11/02/19 07:14 Dextrose (Dextrose 50%) 50 ml Q30M PRN IV Hypoglycemia 10/03/19 07:15 11/02/19 07:14 Heparin Sodium (Porcine) (Heparin 5000 units/ml) 5,000 units EVERY 8 HOURS SUBQ 10/03/19 14:00 11/02/19 13:59 10/04/19 05:42 Insulin Aspart (NovoLOG) BEFORE MEALS AND HS SUBQ 10/03/19 11:30 11/02/19 11:29 10/04/19 20:48 Losartan Potassium (Cozaar) 50 mg DAILY ORAL 10/03/19 09:00 11/02/19 08:59 10/04/19 09:00 Methylprednisolone Sodium Succinate (Solu-MEDROL) 60 mg EVERY 6 HOURS IV 10/03/19 14:13 11/02/19 14:12 10/04/19 17:06 Metoprolol Succinate (Toprol XL) 25 mg DAILY ORAL 10/03/19 09:00 11/02/19 08:59 10/03/19 08:52 Ondansetron HCl (Zofran) 4 mg Q4H PRN IVP Nausea & Vomiting 10/03/19 07:15 11/02/19 07:14 Promethazine HCl/ Codeine (Phenergan with Codeine) 5 ml Q4H PRN ORAL For Cough 10/03/19 14:13 11/02/19 14:12 10/04/19 20:09 Sitagliptin Phosphate (Januvia) 50 mg DAILY ORAL 10/03/19 09:00 11/02/19 08:59 10/04/19 08:59 Theophylline (Zeeshan-Dur) 100 mg EVERY 12 HOURS ORAL 10/03/19 21:00 11/02/19 20:59 10/04/19 20:42 Britney Jensen MD Oct 04, 2019 21:12
[2019-10-05] VITALS: BP 97/59
[2019-10-05] MEDS: Promethazine/Codeine 5ml UD ORAL PRN ×5 (00:11→21:15)
[2019-10-05] MEDS: Solu-MEDROL 125mg Inj IV SCH ×5 (00:11→23:43)
[2019-10-05 04:00] VITALS: BP 118/56
[2019-10-05] MEDS: Heparin 5000 units/ml inj SUBQ SCH ×3 (05:41→22:00)
[2019-10-05] MEDS: NovoLOG Insulin Flexpen SUBQ SCH ×4 (05:43→21:21)
[2019-10-05 07:14] LABS: HEMATOCRIT 33.2 % (37.0-47.0); MEAN CORPUSCULAR VOLUME 92 FL (80-99); PLATELET COUNT 243 K/UL (150-450); RED BLOOD COUNT 3.62 M/UL (4.20-5.40); RED CELL DISTRIBUTION WIDTH 10.7 % (11.6-14.8)
[2019-10-05 07:25] LABS: ANION GAP 10 mmol/L (5-15); BLOOD UREA NITROGEN 27 mg/dL (7-18); CALCIUM 8.7 MG/DL (8.5-10.1); CARBON DIOXIDE 24 MMOL/L (21-32); CHLORIDE 103 MMOL/L (98-107); CREATININE 0.8 MG/DL (0.55-1.30); POTASSIUM 3.8 MMOL/L (3.5-5.1); SODIUM 137 MMOL/L (136-145)
--- NOTE | 2019-10-05 07:27 | NUR ---
HAND-OFF: Report given to MONE Jain.
--- NOTE | 2019-10-05 07:30 | NUR ---
NURSE NOTES: Received pt in bed, AAO x 4. Room air. No c/o of distress/pain. IV on L hand 24g intact and patent, with saline lock. Bed in the lowest and locked. Side rails x 2. Call light within reach. Will continue to monitor
[2019-10-05 08:00] VITALS: BP 120/58
[2019-10-05] MEDS: Losartan 50mg tab ORAL SCH (08:33)
[2019-10-05] MEDS: Theophylline ER 100mg ORAL SCH ×2 (08:33→21:16)
[2019-10-05] MEDS: sitaGLIPtin 50mg tab ORAL SCH (08:33)
[2019-10-05] MEDS: Metoprolol Succinate XL 25mg tab ORAL SCH ×2 (08:34→13:02)
[2019-10-05 12:00] VITALS: BP_SYST 130; BP_SYST 153; BP_DIAS 77; BP_DIAS 82
--- NOTE | 2019-10-05 14:44 | Internal Med Progress Note ---
Subjective Date of Service: Oct 05, 2019 Physician Name Caleb Muller Attending Physician Stan Padgett MD Current Medications Medications (Trade) Dose Ordered Sig/Angélica Route PRN Reason Start Time Stop Time Status Last Admin Dose Admin Acetaminophen (Tylenol) 650 mg Q4H PRN ORAL Mild Pain/Temp > 100.5 10/03/19 07:15 11/02/19 07:14 10/03/19 13:26 Amlodipine Besylate (Norvasc) 5 mg DAILY ORAL 10/03/19 09:00 11/02/19 08:59 10/05/19 13:02 Atorvastatin Calcium (Lipitor) 20 mg BEDTIME ORAL 10/03/19 21:00 11/02/19 20:59 10/04/19 20:42 Ceftriaxone Sodium 1 gm/ Dextrose 55 ml @ 110 mls/hr Q24H IVPB 10/03/19 17:00 10/10/19 16:59 10/04/19 17:07 Dextrose (Dextrose 50%) 25 ml Q30M PRN IV Hypoglycemia 10/03/19 07:15 11/02/19 07:14 Dextrose (Dextrose 50%) 50 ml Q30M PRN IV Hypoglycemia 10/03/19 07:15 11/02/19 07:14 Heparin Sodium (Porcine) (Heparin 5000 units/ml) 5,000 units EVERY 8 HOURS SUBQ 10/03/19 14:00 11/02/19 13:59 10/05/19 05:41 Insulin Aspart (NovoLOG) BEFORE MEALS AND HS SUBQ 10/03/19 11:30 11/02/19 11:29 10/05/19 12:37 Losartan Potassium (Cozaar) 50 mg DAILY ORAL 10/03/19 09:00 11/02/19 08:59 10/05/19 08:33 Methylprednisolone Sodium Succinate (Solu-MEDROL) 60 mg EVERY 6 HOURS IV 10/03/19 14:13 11/02/19 14:12 10/05/19 12:36 Metoprolol Succinate (Toprol XL) 25 mg DAILY ORAL 10/03/19 09:00 11/02/19 08:59 10/05/19 13:02 Ondansetron HCl (Zofran) 4 mg Q4H PRN IVP Nausea & Vomiting 10/03/19 07:15 11/02/19 07:14 Promethazine HCl/ Codeine (Phenergan with Codeine) 5 ml Q4H PRN ORAL For Cough 10/03/19 14:13 11/02/19 14:12 10/05/19 13:02 Sitagliptin Phosphate (Januvia) 50 mg DAILY ORAL 10/03/19 09:00 11/02/19 08:59 10/05/19 08:33 Theophylline (Zeeshan-Dur) 100 mg EVERY 12 HOURS ORAL 10/03/19 21:00 11/02/19 20:59 10/05/19 08:33 Allergies: Coded Allergies: No Known Allergies (Unverified , 04/18/13) ROS Limited/Unobtainable: No Constitutional: Reports: no symptoms HEENT: Reports: no symptoms Cardiovascular: Reports: no symptoms Respiratory: Reports: cough Gastrointestinal/Abdominal: Reports: no symptoms Genitourinary: Reports: no symptoms Subjective 73 YO F admitted with shortness of breath. Now uncontrolled diabetes with hyperglycemia. Cover For Int Nicholas-DR Padgett Objective Last Vital Signs Date Time Temp Pulse Resp B/P (MAP) Pulse Ox O2 Delivery O2 Flow Rate FiO2 10/05/19 13:02 75 153/77 10/05/19 12:00 99.0 18 96 10/05/19 10:54 Room Air 21 Laboratory Tests Test 10/05/19 06:00 White Blood Count 17.0 K/UL (4.8-10.8) H Red Blood Count 3.62 M/UL (4.20-5.40) L Hemoglobin 12.0 G/DL (12.0-16.0) Hematocrit 33.2 % (37.0-47.0) L Mean Corpuscular Volume 92 FL (80-99) Mean Corpuscular Hemoglobin 33.1 PG (27.0-31.0) H Mean Corpuscular Hemoglobin Concent 36.1 G/DL (32.0-36.0) H Red Cell Distribution Width 10.7 % (11.6-14.8) L Platelet Count 243 K/UL (150-450) Mean Platelet Volume 5.8 FL (6.5-10.1) L Neutrophils (%) (Auto) % (45.0-75.0) Lymphocytes (%) (Auto) % (20.0-45.0) Monocytes (%) (Auto) % (1.0-10.0) Eosinophils (%) (Auto) % (0.0-3.0) Basophils (%) (Auto) % (0.0-2.0) Differential Total Cells Counted 100 Neutrophils % (Manual) 87 % (45-75) H Lymphocytes % (Manual) 11 % (20-45) L Monocytes % (Manual) 2 % (1-10) Eosinophils % (Manual) 0 % (0-3) Basophils % (Manual) 0 % (0-2) Band Neutrophils 0 % (0-8) Platelet Estimate Adequate Platelet Morphology Normal Red Blood Cell Morphology Normal Sodium Level 137 MMOL/L (136-145) Potassium Level 3.8 MMOL/L (3.5-5.1) Chloride Level 103 MMOL/L (98-107) Carbon Dioxide Level 24 MMOL/L (21-32) Anion Gap 10 mmol/L (5-15) Blood Urea Nitrogen 27 mg/dL (7-18) H Creatinine 0.8 MG/DL (0.55-1.30) Estimat Glomerular Filtration Rate mL/min (>60) Glucose Level 210 MG/DL (74-106) H Calcium Level 8.7 MG/DL (8.5-10.1) Microbiology Date/Time Source Procedure Growth Status 10/03/19 00:00 Blood Blood Culture - Preliminary NO GROWTH AFTER 48 HOURS Resulted 10/02/19 23:45 Blood Blood Culture - Preliminary NO GROWTH AFTER 48 HOURS Resulted 10/04/19 02:19 Sputum Gram Stain - Final Resulted 10/04/19 02:19 Sputum Sputum Culture Pending Resulted 10/03/19 00:00 Nasal Nares - Final Complete 10/03/19 00:00 Nasal Nares - Final Complete Intake and Output 10/04/19 10/05/19 18:59 06:59 Intake Total 1975 ml Balance 1975 ml Intake Oral 1920 ml IV Total 55 ml # Voids 10 3 Objective PHYSICAL EXAMINATION: GENERAL: The patient is a well-developed and well-nourished female, in no apparent distress. HEENT: Eyes, pupils are equal and responsive to light and accommodation. Extraocular movements are intact. NECK: Supple without lymphadenopathy. CHEST: Lungs are clear to auscultation bilaterally without wheezes or rales. CARDIOVASCULAR: Regular rate. S1, S2 normal without murmurs, rubs, or gallops. ABDOMEN: Soft, nontender, nondistended. Positive bowel sounds. No evidence of hepatosplenomegaly. Currently, no rebound or guarding noted. EXTREMITIES: Negative for clubbing, cyanosis, or edema. RECTAL/GENITAL: Refused. NEUROLOGIC: Cranial nerves II through XII grossly intact without focal deficits. Motor strength is 5/5 bilaterally. Deep tendon reflexes are 2+ plantar. Assessment/Plan Assessment/Plan ASSESSMENT: This is a 73-year-old female. 1. Hyperglycemia. 2. Ketoacidosis. 3. Shortness of breath. 4. Upper respiratory tract infection. 5. Diabetes type 2. 6. Hypertension. 7. Hypercholesterolemia. TREATMENT: 1. Hyperglycemia/diabetes type 2. A NovoLog sliding scale has been instituted. Accu-Cheks will be performed before meals and at bedtime. An Endocrinology consultation has been obtained with Dr. Pitts. 2. Shortness of breath. A Pulmonary consultation has been obtained with Dr. Britney Jensen. The patient may have upper respiratory tract infection versus bronchitis. We will follow recommendations of Pulmonary. The patient has been started empirically on intravenous Solu-Medrol and ceftriaxone. The patient is also on theodur 3. Diabetes type 2. Continue Januvia and NovoLog sliding scale. 4. Hypertension. Continue amlodipine and metoprolol as above. Continue losartan as above. 5. Hypercholesterolemia. Continue atorvastatin as above. Caleb Muller MD Oct 05, 2019 14:43
[2019-10-05 16:00] VITALS: BP 140/78
[2019-10-05] MEDS: cefTRIAXone 1 GM in D5W 55 ML IVPB SCH (17:08)
--- NOTE | 2019-10-05 18:53 | NUR ---
HAND-OFF: Report given to MONE Pack.
--- NOTE | 2019-10-05 19:25 | NUR ---
NURSE NOTES: Received report from MONE Jain. Patient a/a/o x 4, breathing unlabored on room air without distress. No complaint of pain noted at this time. IV on left hand intact, dry, clean, and patent, currently saline locked. Bed placed at the lowest with alarm, brake, and siderails up for safety. Call light placed within reach. Will continue to monitor and provide care as ordered.
[2019-10-05 20:00] VITALS: BP 117/58
[2019-10-05] MEDS: Atorvastatin 20mg tab ORAL SCH (21:16)
--- NOTE | 2019-10-05 21:37 | Pulmonology Progress Note ---
Assessment/Plan Problems: (1) Acute exacerbation of chronic obstructive pulmonary disease (COPD) (2) Acute purulent bronchitis (3) COPD (chronic obstructive pulmonary disease) (4) Empyema (5) Diabetes mellitus Assessment/Plan respiratory treatment check sputum, negative so far Endo consult appreciated short course of abx sliding scale continue Januvia antitussives Subjective ROS Limited/Unobtainable: No Constitutional: Reports: no symptoms Allergies: Coded Allergies: No Known Allergies (Unverified , 04/18/13) Objective Last 24 Hour Vital Signs Date Time Temp Pulse Resp B/P (MAP) Pulse Ox O2 Delivery O2 Flow Rate FiO2 10/05/19 20:00 98.2 80 16 117/58 (77) 96 10/05/19 19:34 79 23 99 Room Air 21 10/05/19 19:22 71 18 99 Room Air 21 10/05/19 16:00 98.1 87 20 140/78 (98) 96 10/05/19 14:44 80 18 99 Room Air 21 10/05/19 14:44 77 16 98 Room Air 21 10/05/19 13:02 75 153/77 10/05/19 13:02 75 153/77 10/05/19 12:00 99.0 75 18 153/77 (102) 96 10/05/19 10:54 80 18 98 Room Air 21 10/05/19 10:54 86 18 98 Room Air 21 10/05/19 09:00 Room Air 10/05/19 08:33 120/58 10/05/19 08:00 97.5 77 18 120/58 (78) 97 10/05/19 06:47 78 18 97 Room Air 21 10/05/19 06:47 84 18 98 Room Air 21 10/05/19 04:00 97.7 80 19 118/56 (76) 95 10/05/19 00:00 98.0 78 20 97/59 (72) 97 10/04/19 23:15 84 21 98 Room Air 21 10/04/19 23:15 84 18 98 Room Air 21 Intake and Output 10/04/19 10/05/19 19:00 07:00 Intake Total 1975 ml Balance 1975 ml Intake Oral 1920 ml IV Total 55 ml # Voids 10 3 Objective General Appearance: WD/WN, no apparent distress Lines, tubes and drains: peripheral HEENT: normocephalic, atraumatic Neck: non-tender, normal alignment Respiratory/Chest: chest wall non-tender, lungs clear Breasts: no masses Cardiovascular/Chest: normal peripheral pulses Abdomen: non tender Extremities: normal range of motion Skin Exam: normal pigmentation Microbiology Date/Time Source Procedure Growth Status 10/03/19 00:00 Blood Blood Culture - Preliminary NO GROWTH AFTER 48 HOURS Resulted 10/02/19 23:45 Blood Blood Culture - Preliminary NO GROWTH AFTER 48 HOURS Resulted 10/04/19 02:19 Sputum Gram Stain - Final Resulted 10/04/19 02:19 Sputum Sputum Culture Pending Resulted 10/03/19 00:00 Nasal Nares - Final Complete 10/03/19 00:00 Nasal Nares - Final Complete Laboratory Tests 10/05/19 06:00: White Blood Count 17.0H, Red Blood Count 3.62L, Hemoglobin 12.0, Hematocrit 33.2L, Mean Corpuscular Volume 92, Mean Corpuscular Hemoglobin 33.1H, Mean Corpuscular Hemoglobin Concent 36.1H, Red Cell Distribution Width 10.7L, Platelet Count 243, Mean Platelet Volume 5.8L, Neutrophils (%) (Auto) , Lymphocytes (%) (Auto) , Monocytes (%) (Auto) , Eosinophils (%) (Auto) , Basophils (%) (Auto) , Differential Total Cells Counted 100, Neutrophils % ( Manual) 87H, Lymphocytes % (Manual) 11L, Monocytes % (Manual) 2, Eosinophils % ( Manual) 0, Basophils % (Manual) 0, Band Neutrophils 0, Platelet Estimate Adequate, Platelet Morphology Normal, Red Blood Cell Morphology Normal, Sodium Level 137, Potassium Level 3.8, Chloride Level 103, Carbon Dioxide Level 24, Anion Gap 10, Blood Urea Nitrogen 27H, Creatinine 0.8, Estimat Glomerular Filtration Rate , Glucose Level 210H, Calcium Level 8.7 Current Medications Medications (Trade) Dose Ordered Sig/Angélica Route PRN Reason Start Time Stop Time Status Last Admin Dose Admin Acetaminophen (Tylenol) 650 mg Q4H PRN ORAL Mild Pain/Temp > 100.5 10/03/19 07:15 11/02/19 07:14 10/03/19 13:26 Amlodipine Besylate (Norvasc) 5 mg DAILY ORAL 10/03/19 09:00 11/02/19 08:59 10/05/19 13:02 Atorvastatin Calcium (Lipitor) 20 mg BEDTIME ORAL 10/03/19 21:00 11/02/19 20:59 10/05/19 21:16 Ceftriaxone Sodium 1 gm/ Dextrose 55 ml @ 110 mls/hr Q24H IVPB 10/03/19 17:00 10/10/19 16:59 10/05/19 17:08 Dextrose (Dextrose 50%) 25 ml Q30M PRN IV Hypoglycemia 10/03/19 07:15 11/02/19 07:14 Dextrose (Dextrose 50%) 50 ml Q30M PRN IV Hypoglycemia 10/03/19 07:15 11/02/19 07:14 Heparin Sodium (Porcine) (Heparin 5000 units/ml) 5,000 units EVERY 8 HOURS SUBQ 10/03/19 14:00 11/02/19 13:59 10/05/19 05:41 Insulin Aspart (NovoLOG) BEFORE MEALS AND HS SUBQ 10/03/19 11:30 11/02/19 11:29 10/05/19 21:21 Losartan Potassium (Cozaar) 50 mg DAILY ORAL 10/03/19 09:00 11/02/19 08:59 10/05/19 08:33 Methylprednisolone Sodium Succinate (Solu-MEDROL) 60 mg EVERY 6 HOURS IV 10/03/19 14:13 11/02/19 14:12 10/05/19 17:07 Metoprolol Succinate (Toprol XL) 25 mg DAILY ORAL 10/03/19 09:00 11/02/19 08:59 10/05/19 13:02 Ondansetron HCl (Zofran) 4 mg Q4H PRN IVP Nausea & Vomiting 10/03/19 07:15 11/02/19 07:14 Promethazine HCl/ Codeine (Phenergan with Codeine) 5 ml Q4H PRN ORAL For Cough 10/03/19 14:13 11/02/19 14:12 10/05/19 21:15 Sitagliptin Phosphate (Januvia) 50 mg DAILY ORAL 10/03/19 09:00 11/02/19 08:59 10/05/19 08:33 Theophylline (Zeeshan-Dur) 100 mg EVERY 12 HOURS ORAL 10/03/19 21:00 11/02/19 20:59 10/05/19 21:16 Britney Jensen MD Oct 05, 2019 21:37
[2019-10-06] VITALS: BP 115/67
[2019-10-06 04:00] VITALS: BP 117/61
[2019-10-06] MEDS: Solu-MEDROL 125mg Inj IV SCH ×3 (05:42→17:04)
[2019-10-06] MEDS: NovoLOG Insulin Flexpen SUBQ SCH ×3 (05:46→17:05)
[2019-10-06] MEDS: Heparin 5000 units/ml inj SUBQ SCH ×2 (05:48→13:13)
[2019-10-06 06:50] LABS: HEMATOCRIT 35.6 % (37.0-47.0); HEMOGLOBIN 12.4 G/DL (12.0-16.0); MEAN CORPUSCULAR VOLUME 93 FL (80-99); PLATELET COUNT 258 K/UL (150-450); RED BLOOD COUNT 3.83 M/UL (4.20-5.40); RED CELL DISTRIBUTION WIDTH 10.6 % (11.6-14.8); WHITE BLOOD COUNT 15.4 K/UL (4.8-10.8)
[2019-10-06 07:05] LABS: ALANINE AMINOTRANSFERASE 32 U/L (12-78); ALBUMIN 3.5 G/DL (3.4-5.0); ALKALINE PHOSPHATASE 67 U/L (46-116); ANION GAP 8 mmol/L (5-15); ASPARTATE AMINO TRANSFERASE 25 U/L (15-37); BILIRUBIN,TOTAL 0.3 MG/DL (0.2-1.0); BLOOD UREA NITROGEN 30 mg/dL (7-18); CALCIUM 8.6 MG/DL (8.5-10.1); CARBON DIOXIDE 29 MMOL/L (21-32); CHLORIDE 103 MMOL/L (98-107); POTASSIUM 3.7 MMOL/L (3.5-5.1); SODIUM 140 MMOL/L (136-145)
[2019-10-06 07:10] LABS: PHOSPHORUS 4.5 MG/DL (2.5-4.9)
--- NOTE | 2019-10-06 07:23 | NUR ---
HAND-OFF: Report given to MONE Jain. Patient stable, no change of condition noted during the shift. Endorsed plan of care.
--- NOTE | 2019-10-06 07:24 | NUR ---
NURSE NOTES: Received pt in bed, AAO x 4. Room air. No c/o of pain/distress. IV on L hand 24g intact and patent, with saline lock. Side rails x 2. Bed in the lowest and locked. Call light within reach. Will continue to monitor
[2019-10-06 08:00] VITALS: BP 106/54
[2019-10-06] MEDS: Metoprolol Succinate XL 25mg tab ORAL SCH (09:00)
[2019-10-06] MEDS: Promethazine/Codeine 5ml UD ORAL PRN ×2 (09:41→18:03)
[2019-10-06] MEDS: Losartan 50mg tab ORAL SCH (09:41)
[2019-10-06] MEDS: sitaGLIPtin 50mg tab ORAL SCH (09:41)
[2019-10-06] MEDS: Theophylline ER 100mg ORAL SCH (09:41)
[2019-10-06] MEDS: Nateglinide 60mg tab ORAL SCH ×2 (11:49→17:05)
[2019-10-06 12:00] VITALS: BP 113/64
[2019-10-06] MEDS ORDERED: MEDROL DOSEPAK4 MG ORAL (14:47)
[2019-10-06] MEDS ORDERED: STARLIX60 MG ORAL (14:47)
[2019-10-06] MEDS ORDERED: DUONEB 0.5-3(2.53 ML HHN (14:47)
--- NOTE | 2019-10-06 14:51 | Pulmonology Progress Note ---
Assessment/Plan Problems: (1) Acute exacerbation of chronic obstructive pulmonary disease (COPD) (2) Acute purulent bronchitis (3) COPD (chronic obstructive pulmonary disease) (4) Empyema (5) Diabetes mellitus Assessment/Plan respiratory treatment check sputum, negative so far Endo consult appreciated short course of abx sliding scale continue Januvia antitussives dc medications and treatment were reviewed. prescription given Subjective ROS Limited/Unobtainable: No Interval Events: wants to go home Allergies: Coded Allergies: No Known Allergies (Unverified , 04/18/13) Objective Last 24 Hour Vital Signs Date Time Temp Pulse Resp B/P (MAP) Pulse Ox O2 Delivery O2 Flow Rate FiO2 10/06/19 14:22 84 18 98 Room Air 21 10/06/19 14:22 78 18 97 Room Air 10/06/19 12:00 97.9 72 20 113/64 (80) 97 10/06/19 11:45 80 18 98 Room Air 10/06/19 11:45 82 18 98 Room Air 10/06/19 09:41 106/54 10/06/19 09:00 Room Air 10/06/19 09:00 73 106/54 10/06/19 09:00 73 106/54 10/06/19 08:00 98.0 73 18 106/54 (71) 95 10/06/19 07:50 77 16 98 Room Air 10/06/19 07:50 80 18 99 Room Air 10/06/19 04:00 96.8 71 16 117/61 (79) 94 10/06/19 02:46 Room Air 10/06/19 02:46 Room Air 10/06/19 00:00 97.0 76 16 115/67 (83) 96 10/05/19 23:36 Room Air 21 10/05/19 23:36 Room Air 21 10/05/19 21:00 Room Air 10/05/19 20:00 98.2 80 16 117/58 (77) 96 10/05/19 19:34 79 23 99 Room Air 21 10/05/19 19:22 71 18 99 Room Air 21 10/05/19 16:00 98.1 87 20 140/78 (98) 96 Intake and Output 10/05/19 10/06/19 19:00 07:00 Intake Total 1020 ml Balance 1020 ml Intake Oral 1020 ml # Voids 8 3 Objective General Appearance: WD/WN, no apparent distress Lines, tubes and drains: peripheral HEENT: normocephalic, atraumatic Neck: non-tender, normal alignment Respiratory/Chest: chest wall non-tender, lungs clear Breasts: no masses Cardiovascular/Chest: normal peripheral pulses Abdomen: non tender Extremities: normal range of motion Skin Exam: normal pigmentation Microbiology Date/Time Source Procedure Growth Status 10/04/19 02:19 Sputum Gram Stain - Final Complete 10/04/19 02:19 Sputum Sputum Culture - Final NORMAL UPPER RESPIRATORY STEVE PRESENT Complete Laboratory Tests 10/06/19 05:40: White Blood Count 15.4H, Red Blood Count 3.83L, Hemoglobin 12.4, Hematocrit 35.6L, Mean Corpuscular Volume 93, Mean Corpuscular Hemoglobin 32.4H, Mean Corpuscular Hemoglobin Concent 34.8, Red Cell Distribution Width 10.6L, Platelet Count 258, Mean Platelet Volume 5.5L, Neutrophils (%) (Auto) , Lymphocytes (%) (Auto) , Monocytes (%) (Auto) , Eosinophils (%) (Auto) , Basophils (%) (Auto) , Differential Total Cells Counted 100, Neutrophils % ( Manual) 90H, Lymphocytes % (Manual) 9L, Monocytes % (Manual) 1, Eosinophils % ( Manual) 0, Basophils % (Manual) 0, Band Neutrophils 0, Platelet Estimate Adequate, Platelet Morphology Normal, Red Blood Cell Morphology Normal, Erythrocyte Sedimentation Rate 20, Sodium Level 140, Potassium Level 3.7, Chloride Level 103, Carbon Dioxide Level 29, Anion Gap 8, Blood Urea Nitrogen 30H, Creatinine 1.0, Estimat Glomerular Filtration Rate , Glucose Level 204H, Hemoglobin A1c 7.0H, Calcium Level 8.6, Phosphorus Level 4.5, Magnesium Level 2.3, Total Bilirubin 0.3, Aspartate Amino Transf (AST/SGOT) 25, Alanine Aminotransferase (ALT/SGPT) 32, Alkaline Phosphatase 67, C-Reactive Protein, Quantitative 1.4H, Total Protein 6.9, Albumin 3.5, Globulin 3.4, Albumin/ Globulin Ratio 1.0 Current Medications Medications (Trade) Dose Ordered Sig/Angélica Route PRN Reason Start Time Stop Time Status Last Admin Dose Admin Acetaminophen (Tylenol) 650 mg Q4H PRN ORAL Mild Pain/Temp > 100.5 10/03/19 07:15 11/02/19 07:14 10/03/19 13:26 Amlodipine Besylate (Norvasc) 5 mg DAILY ORAL 10/03/19 09:00 11/02/19 08:59 10/05/19 13:02 Atorvastatin Calcium (Lipitor) 20 mg BEDTIME ORAL 10/03/19 21:00 11/02/19 20:59 10/05/19 21:16 Ceftriaxone Sodium 1 gm/ Dextrose 55 ml @ 110 mls/hr Q24H IVPB 10/03/19 17:00 10/10/19 16:59 10/05/19 17:08 Dextrose (Dextrose 50%) 25 ml Q30M PRN IV Hypoglycemia 10/03/19 07:15 11/02/19 07:14 Dextrose (Dextrose 50%) 50 ml Q30M PRN IV Hypoglycemia 10/03/19 07:15 11/02/19 07:14 Heparin Sodium (Porcine) (Heparin 5000 units/ml) 5,000 units EVERY 8 HOURS SUBQ 10/03/19 14:00 11/02/19 13:59 10/05/19 05:41 Insulin Aspart (NovoLOG) BEFORE MEALS AND HS SUBQ 10/03/19 11:30 11/02/19 11:29 10/06/19 11:49 Losartan Potassium (Cozaar) 50 mg DAILY ORAL 10/03/19 09:00 11/02/19 08:59 10/06/19 09:41 Methylprednisolone Sodium Succinate (Solu-MEDROL) 60 mg EVERY 6 HOURS IV 10/03/19 14:13 11/02/19 14:12 10/06/19 11:49 Metoprolol Succinate (Toprol XL) 25 mg DAILY ORAL 10/03/19 09:00 11/02/19 08:59 10/05/19 13:02 Nateglinide (Starlix) 60 mg TIAC ORAL 10/06/19 11:30 11/05/19 11:29 10/06/19 11:49 Ondansetron HCl (Zofran) 4 mg Q4H PRN IVP Nausea & Vomiting 10/03/19 07:15 11/02/19 07:14 Promethazine HCl/ Codeine (Phenergan with Codeine) 5 ml Q4H PRN ORAL For Cough 10/03/19 14:13 11/02/19 14:12 10/06/19 09:41 Sitagliptin Phosphate (Januvia) 50 mg DAILY ORAL 10/03/19 09:00 11/02/19 08:59 10/06/19 09:41 Theophylline (Zeeshan-Dur) 100 mg EVERY 12 HOURS ORAL 10/03/19 21:00 11/02/19 20:59 10/06/19 09:41 Britney Jensen MD Oct 06, 2019 14:51
[2019-10-06 16:00] VITALS: BP 120/63
--- NOTE | 2019-10-06 16:30 | Consultation ---
DATE OF CONSULTATION: 10/06/2019 ENDOCRINOLOGY CONSULTATION CONSULTING PHYSICIAN: Hussein Pitts M.D. REFERRING PHYSICIAN: Stan Padgett M.D. REASON FOR CONSULTATION: Diabetes management. HISTORY OF PRESENT ILLNESS: The patient is a 73-year-old female who presented to the hospital with cough and shortness of breath for the past 3 or 4 days. She was having difficulty in sleeping, increased headache, and a cough. On Januvia 50 mg daily. Upon presentation, the patient was started on intravenous Solu-Medrol which raised the glucose significantly. Therefore, Endocrinology was consulted. PAST MEDICAL HISTORY: 1. Type 2 diabetes. 2. Hypertension. 3. Hypercholesterolemia. PAST SURGICAL HISTORY: None. MEDICATIONS: Reviewed and reconciled. ALLERGIES TO MEDICATIONS: None. SOCIAL HISTORY: The patient is single. No smoking, alcohol, or drug use. REVIEW OF SYSTEMS: As per HPI. MEDICATIONS: Reviewed and reconciled. LABORATORY DATA: WBC 17, hemoglobin 12, hematocrit 33, platelets of 243. Sodium 137, potassium 3.8, chloride 103, bicarbonate 24, BUN 27, creatinine 0.8, glucose of 210. Lactic acid of 1.2. PHYSICAL EXAMINATION: VITAL SIGNS: Blood pressure 117/61, pulse 71, temperature 96.8, respiratory rate of 16. HEENT: Pupils are equal and reactive to light. Sclerae anicteric. NECK: No JVD. No thyromegaly. LUNGS: Wheezing. ABDOMEN: Positive bowel sounds. EXTREMITIES: No clubbing or cyanosis. Trace edema. DIAGNOSES: 1. Diabetes exacerbated by steroids 2. Bronchospasm. 3. Upper respiratory tract infection. 4. Lactic acidosis. PLAN: 1. Continue Januvia 50 mg. 2. Add Starlix 60 mg before meals times a day. 3. NovoLog sliding scale before meals and at bedtime. 4. Check hemoglobin A1c. 5. Further adjustment according to blood glucose values. Thank you, Dr. Padgett for the courtesy of this consultation. Hussein Pitts M.D. DR: Carmita JOB#: [id number] CC: LAURITA
[2019-10-06] MEDS: cefTRIAXone 1 GM in D5W 55 ML IVPB SCH (17:06)
--- NOTE | 2019-10-06 18:30 | NUR ---
NURSE NOTES: Pt was discharged to home via private vehicle accompanied by family member in a stable condition. ID and IV was removed. No s/s of infection on the removal site. Skin intact. Prescription and discharge instructions were given. Belongings were accounted and given to the family member.
--- NOTE | 2019-10-06 18:58 | Internal Med Progress Note ---
Subjective Date of Service: Oct 06, 2019 Physician Name Caleb Muller Attending Physician Stan Padgett MD Allergies: Coded Allergies: No Known Allergies (Unverified , 04/18/13) ROS Limited/Unobtainable: No Constitutional: Reports: no symptoms HEENT: Reports: no symptoms Cardiovascular: Reports: no symptoms Respiratory: Reports: no symptoms Gastrointestinal/Abdominal: Reports: no symptoms Genitourinary: Reports: no symptoms Neurologic/Psychiatric: Reports: no symptoms Subjective 73 YO F admitted with shortness of breath. Now uncontrolled diabetes with hyperglycemia. Cover For Int Med-DR Padgett Objective Last Vital Signs Date Time Temp Pulse Resp B/P (MAP) Pulse Ox O2 Delivery O2 Flow Rate FiO2 10/06/19 16:00 97.8 71 20 120/63 (82) 95 10/06/19 14:22 Room Air 21 Laboratory Tests Test 10/06/19 05:40 White Blood Count 15.4 K/UL (4.8-10.8) H Red Blood Count 3.83 M/UL (4.20-5.40) L Hemoglobin 12.4 G/DL (12.0-16.0) Hematocrit 35.6 % (37.0-47.0) L Mean Corpuscular Volume 93 FL (80-99) Mean Corpuscular Hemoglobin 32.4 PG (27.0-31.0) H Mean Corpuscular Hemoglobin Concent 34.8 G/DL (32.0-36.0) Red Cell Distribution Width 10.6 % (11.6-14.8) L Platelet Count 258 K/UL (150-450) Mean Platelet Volume 5.5 FL (6.5-10.1) L Neutrophils (%) (Auto) % (45.0-75.0) Lymphocytes (%) (Auto) % (20.0-45.0) Monocytes (%) (Auto) % (1.0-10.0) Eosinophils (%) (Auto) % (0.0-3.0) Basophils (%) (Auto) % (0.0-2.0) Differential Total Cells Counted 100 Neutrophils % (Manual) 90 % (45-75) H Lymphocytes % (Manual) 9 % (20-45) L Monocytes % (Manual) 1 % (1-10) Eosinophils % (Manual) 0 % (0-3) Basophils % (Manual) 0 % (0-2) Band Neutrophils 0 % (0-8) Platelet Estimate Adequate Platelet Morphology Normal Red Blood Cell Morphology Normal Erythrocyte Sedimentation Rate 20 MM/HR (0-30) Sodium Level 140 MMOL/L (136-145) Potassium Level 3.7 MMOL/L (3.5-5.1) Chloride Level 103 MMOL/L (98-107) Carbon Dioxide Level 29 MMOL/L (21-32) Anion Gap 8 mmol/L (5-15) Blood Urea Nitrogen 30 mg/dL (7-18) H Creatinine 1.0 MG/DL (0.55-1.30) Estimat Glomerular Filtration Rate mL/min (>60) Glucose Level 204 MG/DL (74-106) H Hemoglobin A1c 7.0 % (4.3-6.0) H Calcium Level 8.6 MG/DL (8.5-10.1) Phosphorus Level 4.5 MG/DL (2.5-4.9) Magnesium Level 2.3 MG/DL (1.8-2.4) Total Bilirubin 0.3 MG/DL (0.2-1.0) Aspartate Amino Transf (AST/SGOT) 25 U/L (15-37) Alanine Aminotransferase (ALT/SGPT) 32 U/L (12-78) Alkaline Phosphatase 67 U/L (46-116) C-Reactive Protein, Quantitative 1.4 mg/dL (0.00-0.90) H Total Protein 6.9 G/DL (6.4-8.2) Albumin 3.5 G/DL (3.4-5.0) Globulin 3.4 g/dL Albumin/Globulin Ratio 1.0 (1.0-2.7) Microbiology Date/Time Source Procedure Growth Status 10/04/19 02:19 Sputum Gram Stain - Final Complete 10/04/19 02:19 Sputum Sputum Culture - Final NORMAL UPPER RESPIRATORY STEVE PRESENT Complete Intake and Output 10/05/19 10/06/19 19:00 07:00 Intake Total 1020 ml Balance 1020 ml Intake Oral 1020 ml # Voids 8 3 Objective PHYSICAL EXAMINATION: GENERAL: The patient is a well-developed and well-nourished female, in no apparent distress. HEENT: Eyes, pupils are equal and responsive to light and accommodation. Extraocular movements are intact. NECK: Supple without lymphadenopathy. CHEST: Lungs are clear to auscultation bilaterally without wheezes or rales. CARDIOVASCULAR: Regular rate. S1, S2 normal without murmurs, rubs, or gallops. ABDOMEN: Soft, nontender, nondistended. Positive bowel sounds. No evidence of hepatosplenomegaly. Currently, no rebound or guarding noted. EXTREMITIES: Negative for clubbing, cyanosis, or edema. RECTAL/GENITAL: Refused. NEUROLOGIC: Cranial nerves II through XII grossly intact without focal deficits. Motor strength is 5/5 bilaterally. Deep tendon reflexes are 2+ plantar. Assessment/Plan Assessment/Plan ASSESSMENT: This is a 73-year-old female. 1. Hyperglycemia. 2. Ketoacidosis. 3. Shortness of breath. 4. Upper respiratory tract infection. 5. Diabetes type 2. 6. Hypertension. 7. Hypercholesterolemia. TREATMENT: 1. Hyperglycemia/diabetes type 2. A NovoLog sliding scale has been instituted. Accu-Cheks will be performed before meals and at bedtime. An Endocrinology consultation has been obtained with Dr. Pitts. 2. Shortness of breath. A Pulmonary consultation has been obtained with Dr. Britney Jensen. The patient may have upper respiratory tract infection versus bronchitis. We will follow recommendations of Pulmonary. The patient has been started empirically on intravenous Solu-Medrol and ceftriaxone. The patient is also on theodur 3. Diabetes type 2. Continue Januvia and NovoLog sliding scale. 4. Hypertension. Continue amlodipine and metoprolol as above. Continue losartan as above. 5. Hypercholesterolemia. Continue atorvastatin as above. 6. Discharge home today Caleb Muller MD Oct 06, 2019 18:58
--- NOTE | 2019-10-07 07:45 | Discharge Summary ---
Discharge Summary Discharge Summary _ DATE OF ADMISSION: 10/03/2019 DATE OF DISCHARGE:10/06/2019 DISCHARGED BY: Dr. Padgett REASON FOR ADMISSION: 73 years old female with past medical history of hypertension, hypercholesterolemia, type 2 diabetes mellitus, presented with chief complaint of cough and shortness of breath. Symptoms started 3 days prior to admission. Patient initially had a sore throat and then developed nonproductive cough. Patient continued to have shortness of breath . Patient subsequently presented to emergency room for further evaluation. Upon presentation vital signs revealed mild tachypnea with respiratory rate 23 , pulse oximetry was stable on room air , and patient was afebrile. Laboratory work-up revealed mild leukocytosis WBC 12.2, stable hemoglobin , hematocrit and platelet count. Pro BNP 33. troponin negative . EKG revealed sinus rhythm, no acute ischemic changes Albumin 3.8. Chest x-ray revealed no acute cardiopulmonary pathology. Patient subsequently admitted for further management CONSULTANTS: pulmonary Dr. Jensen used car manager Dr. Pitts [facility] COURSE: Patient admitted and started on bronchodilator treatment with via handheld nebulizing therapy. Patient started on the IV steroids and empiric antibiotics. Trial of theophylline instituted. Antitussive provided as needed. Supplemental oxygen was on board as needed to keep pulse oximetry above 92%. Pulse oximetry remained stable on room air. Blood cultures were negative. Sputum culture was negative. Patient demonstrated mild leukocytosis , likely due to steroids. Urinalysis was unremarkable. Repeated lactic acid 1.2. [employer] followed for blood sugar management. Hemoglobin A1c 7.0. Diabetic diet provided. Blood sugar was managed with Januvia and sliding scale of insulin as needed. [employer] added Starlix before meals three times a day. Blood sugar improved. Patient was encouraged to comply with medication regimen. Hyperglycemia was likely due to steroids. Home medications were continued. Blood pressure was managed with multiply antihypertensive medication, remained stable. Statin continued. Patient clinically stabilized. Shortness of breath resolved. Pulse oximetry was stable on room air. Patient remained afebrile. Patietn was stable for discharge home. FINAL DIAGNOSES: Acute COPD exacerbation Acute purulent bronchitis Lactic acidosis Hyperglycemia Hypertension Hypercholesterolemia DISCHARGE MEDICATIONS: See Medication Reconciliation list. DISCHARGE INSTRUCTIONS: Patient was discharged home. Follow-up with her primary care provider in 1 week. I have been assigned to dictate discharge summary for this account. I was not involved in the patient's management. Deonna Cruz NP Oct 07, 2019 07:45
== END 2019-10-06 18:29 | disposition home or self-care (01) | DRG 190 ==
LOC: EMR 23:59 → 4E 10-03 01:14 → EDBEDREQ 10-03 01:31
DX: J44.1 Chronic obstructive pulmonary disease with (acute) exacerbation (principal); E11.10 Type 2 diabetes mellitus with ketoacidosis without coma; J86.9 Pyothorax without fistula; E87.2 Acidosis; J20.9 Acute bronchitis, unspecified; J44.0 Chronic obstructive pulmonary disease with (acute) lower respiratory infection; E11.65 Type 2 diabetes mellitus with hyperglycemia; E78.00 Pure hypercholesterolemia, unspecified; I10 Essential (primary) hypertension; Z79.4 Long term (current) use of insulin; T38.0X5A Adverse effect of glucocorticoids and synthetic analogues, initial encounter
CPT/HCPCS: 36415; 71045; 80048; 80053; 81003; 82550; 82553; 82962; 83036; 83605; 83690; 83735; 83880; 84100; 84484; 85007; 85025; 85651; 86140; 86710; 87040; 87070; 87205; 93005; 96360; 99285; J1815